=== PATIENT | male | born 1965 | race Caucasian/White ===

== ENCOUNTER 2025-02-28 08:53 | Day surgery (SDC) | payer OTHER, SELFPAY ==
--- NOTE | 2025-02-27 18:52 | W.PM.DSUDISC ---
Date of service: 02/28/25 Discharge Plan Disposition Patient Disposition: Home Condition: Good Discharge Details Reason For Visit: screening colonoscopy Attending Provider: Irving Aguilera Primary Care Provider: No,Local Home Meds and New Rx's Prescriptions: Discontinued bisacodyl [Dulcolax (bisacodyl)] 5 mg tablet,delayed release (DR/EC) 5 mg PO ONCE Qty: 4 0RF Rx Instructions: Take per colonoscopy instructions provided by ordering providers office polyethylene glycol 3350 17 gram/dose powder 17 g PO ONCE Qty: 238 0RF Rx Instructions: Take per colonoscopy instructions provided by ordering providers office Discharge Instructions Instructions: Colon polyps, Diverticulosis Additional Instructions: Wing, it was nice to meet you today, and hope you feel well after the procedure. Things went very smoothly. I did find, and removed, 1 polyp today. It was medium in size, and the features appear particularly worrisome to the naked eye. This will be sent to the pathologist for them to review. Once I know the nature of this polyp, my office will be in touch with any other recommendations. Incidentally, you also have some diverticulosis. This occurs when the muscular layer of the colon wall weakens as we age. This causes the inside lining to pocket her pouch outwards a little bit. These areas can get infected or inflamed during flareups that we refer to as diverticulitis. Hopefully yours will never bother you. I will attach some basic information here about diverticulosis, as well as colorectal polyps. If you need anything at all, please do not hesitate to call, otherwise we will be in touch once the pathology report is available. 1. If tolerated, consume a soft, low fiber diet for 1-2 days. 2[address] Do not drive, drink alcohol, operate machinery, make critical decisions, or do activities that require coordination or balance for 24 hours. 3. Because air was put into your colon during the procedure, expelling air from your rectum (passing gas or farting) is normal. 4. You may not have a bowel movement for 1-3 days because of the colonoscopy prep. This is normal. 5. Go directly to the emergency room if you notice any of the following: Develop chills (warm to touch), or if you have a thermometer and your temperature is above 101 Difficulty breathing or difficultly swallowing Persistent vomiting Severe abdominal pain, other than gas cramps Severe chest pain Black, tarry stools Any bleeding ? exceeding one tablespoon 6. Call your physician if the site where your intravenous was started becomes red, swollen, painful, and warm to touch. 7. Your physician has reviewed your pre-procedure medications. Please continue to take those medications as previously ordered. You will be given specific information/education regarding any changes to your medications before leaving. Stand Alone Forms: Anesthesia Discharge Inst., [facility] ([facility]), Portal Information Activity:: Activity as Tolerated Diet:: As Tolerated Discharge Orders Discharge Orders: Discharge Order (Routine); Ordered 02/27/25 Ordered By: Irving Aguilera DS: Diagnosis Discharge Diagnosis (1) Encounter for screening colonoscopy: Status: Acute Asessment and Plan: Follow-up on polypectomy results
--- NOTE | 2025-02-27 18:53 | W.COLOREPORT ---
Date of service: 02/28/25 Time of Service: 10:44 Colonoscopy Report Date of procedure: 02/28/25 Pre-op diagnosis general: screening colonoscopy Post-op diagnosis procedure note: other (Colon polyp, diverticulosis) Procedure: colonoscopy with polypectomy Surgeon: Irving Aguilera Anesthesia Type: General:No Airway Estimated blood loss (mL): 5 Pathology: other (0.5 cm flat cecal polyp) Complications: None Disposition: same day Indications: Mandeep is a 59 year old man with a history of adenomatous polyps who needs his next screening colonoscopy Prep: Miralax/Dulcolax Procedure Start Time: 10:22 Procedure End Time: 10:34 Retraction Time: 9 Findings: Sigmoid diverticulosis, 0.5 cm flat cecal polyp Procedure Description: After the induction of anesthesia, and with Wing in left lateral decubitus position, I began by performing an external anorectal exam.? Perineum and skin were normal, as was the anal verge.? There was no evidence of external hemorrhoids.? Next, I performed a digital rectal exam.? I did not appreciate any abnormal findings.? Next, I advanced a colonoscope into the rectal vault.? I performed retroflexion.? This appeared normal.? Using irrigation, I then advanced the colonoscope beyond the rectal folds and into the sigmoid colon before advancing towards the cecum.? There is sigmoid diverticulosis.? The scope was noted to be in the cecum by identification of the ileocecal valve and appendiceal orifice.? A few millimeters away from the appendix was a 0.5 cm flat polyp. This was removed in piecemeal with a energize snare polypectomy. Resection was complete and there was minimal bleeding. I then began withdrawing the colonoscope using repeated irrigation as necessary for full evaluation of the colonic mucosa. ?Once the scope was withdrawn to the level of the rectum, great care was taken to examine portions of the rectal folds.? Finally, the scope was withdrawn and the patient was brought to the same-day surgery recovery unit as the anesthetic wore off. ?The findings and instructions were shared with the patient prior to discharge. [place] Bowel Prep [place] Bowel Prep Right Colon: 3 Left Colon: 3 Transverse Colon: 3 Total Score: 9
[2025-02-28 09:22] VITALS: BP 130/88; PULSE 77; RESP 18; TEMP 35; O2SAT 99
[2025-02-28] MEDS: Lactated Ringers 1,000 ML 80 ML IV (09:59)
--- NOTE | 2025-02-28 10:03 | W.ANESPRE ---
General Info Date of Service Date Performed: 02/28/25 Height: 5 ft 10 in Weight: 95.5 kg Body Mass Index (BMI): 30.2 Surgical Procedure: Operation Date: 02/28/25 10:35 Proposed Procedure Side Surgeon p Colonoscopy Irving Aguilera MD Meds Allergies and Home Medications Allergies Allergy/AdvReac Type Severity Reaction Status Date / Time No Known Allergies Allergy Unverified 02/28/25 09:37 Current Visit Medications: Current Medications Generic Name Dose Route Start Last Admin Trade Name Freq PRN Reason Stop Dose Admin Ringer's Solution 1,000 mls @ 80 mls/hr 02/28/25 06:00 02/28/25 09:59 IV 02/28/25 23:59 80 mls/hr INFUSION JULIETA Administration Sodium Chloride 0 ml 02/28/25 06:00 Normal Saline Flush 10 Ml Syr IV 02/28/25 23:59 PRN PRN Sodium Chloride 0 ml 02/28/25 06:00 Normal Saline 10 Ml Vial IJ 02/28/25 23:59 DIRECTED PRN Sterile Water 0 ml 02/28/25 06:00 Water,Injection,Sterile 10 Ml Vial IJ 02/28/25 23:59 DIRECTED PRN PFSH Active Problems Active Problems: Problem Status Onset Code Encounter for screening colonoscopy Acute Z12.11 Medical History Medical History Benign neoplasm of colon, unspecified Deficiency of other specified B group vitamins Surgical History Surgical History H/O colonoscopy Tobacco Smoking/Tobacco Use Status: Never Alcohol Alcohol Intake: current Alcohol intake frequency: a few times a week Substance Use Substance use type: does not use Vital Signs and Lab Results Vital Signs Most Recent Vital Signs in EMR: Most Recent Vital Signs Temp Pulse Resp BP Pulse Ox 35 C L 77 18 130/88 99 02/28/25 09:22 02/28/25 09:22 02/28/25 09:22 02/28/25 09:22 02/28/25 09:22 Anesthesia Assessment and Plan Anesthesia History Personal History: No History of Anesthesia Complications Family History: No Family History of Anesthesia Complications Exercise Tolerance Exercise Tolerance: Metabolic Equivalents>4 Pertinent Negatives Pertinent Negatives: No Symptoms of GERD Cardiac & Pulmonary Exam Cardiac Exam: Normal S1/S2 Heart Sounds Pulmonary Exam: Clear Bilateral Breath Sounds Implantable Cardiac Device Does patient have a Pacemaker or an ICD?: No Airway Exam Known Difficult Airway: No Mallampati Class: 2 Mouth Opening: Normal (> 3cm) Thyromental Distance: Less than 3 cm Neck Range of Motion: Full ROM Neck Circumference: Normal Teeth Condition: Normal Dentition ASA Classification ASA Score: ASA 1 Emergency Case?: No NPO Status NPO Status: NPO Clears >2 hours, Solids >8 hours Anesthesia Plan Resuscitation Status: Full Code Anesthesia Technique: General Anesthesia Airway Planned: Natural Airway Monitors Used: Standard Monitors
[2025-02-28 10:05] VITALS: BMI 30.2
--- NOTE | 2025-02-28 10:28 | BOWEL_PTH ---
PATIENT: Wing Stanton LOC: [facility] U#:[id number] AGE/SX: 59/M ROOM: RE02/28/[address]: Irving Aguilera MD : [id number] BED: DIS: 02/28/2025 SPEC #: [id number] RECD: 02/28/25 12:30 STATUS: ELIER REQ #: [id number] GERMAN: 02/28/25 10:[address]: Irving Aguilera DEPT: Surgical Specimen RECD BY: Maria Alejandra Foss ENTERED: 02/28/25 12:30 SP TYPE: Bowel OTHR DR: No Local Tissues: 1 - BIOPSY BOWEL Procedures: GROSS AND MICRO LEVEL 4 Comments: [id number]
[2025-02-28 10:41] VITALS: BP 101/77; PULSE 93; RESP 18; TEMP 36.4; O2SAT 95
--- NOTE | 2025-02-28 11:01 | W.ANESPOSTOP ---
Postoperative Evaluation Date, Time and Location Date Performed: 02/28/25 Time Performed: 11:02 Patient Location: Day Surgery Unit Vital Signs Most Recent Imported Vital Signs: Most Recent Vital Signs Temp Pulse Resp BP Pulse Ox 36.4 C L 93 H 18 101/77 95 02/28/25 10:41 02/28/25 10:41 02/28/25 10:41 02/28/25 10:41 02/28/25 10:41 Pain Score Most Recent Pain Score: Most Recent Pain Score Pain Level 0 02/28/25 10:41 Assessment Mental Status: Awake (Alert & Oriented to Patient Baseline) Airway and Respiratory Function: Patent airway with normal (patient baseline) respiratory exam Cardiovascular Function: Hemodynamically Stable Hydration Status: Adequately Hydrated Nausea & Vomiting: No Nausea or Vomiting Pain: Pt. Denies Any Pain Peripheral Nerve Block: Patient did not receive a nerve block
[2025-02-28 11:13] VITALS: BP 101/79; PULSE 85; RESP 14; TEMP 36.4; O2SAT 97
== END 2025-02-28 11:30 | disposition home or self-care (01) ==
LOC: SUR 08:53
PROVIDERS: Visit Provider Surgery
PROC: 0DJD8ZZ Inspection of Lower Intestinal Tract, Via Natural or Artificial Opening Endoscopic (ICD-10-PCS; CPT 45378; principal; 2025-02-28 10:30)
DX: Z12.11 Encounter for screening for malignant neoplasm of colon (principal); D12.0 Benign neoplasm of cecum; K57.30 Diverticulosis of large intestine without perforation or abscess without bleeding
CPT/HCPCS: 45385; 88305; J2704